=== PATIENT | male | born 1970 | race Caucasian/White ===

== ENCOUNTER 2017-01-18 23:24 | Inpatient (IN) ==
[2017-01-19] MEDS ORDERED: *HR* Morphine 2 MG/ML SYRINGE IVP PRN ×2 (03:01→13:43)
[2017-01-19] MEDS ORDERED: Ondansetron 4 MG/2 ML VIAL IVP PRN ×2 (03:02→18:19)
[2017-01-19] MEDS ORDERED: Ketorolac 30 MG/ML VIAL IVP PRN ×2 (03:20→18:19)
[2017-01-19] MEDS ORDERED: Naloxone 0.4 MG/ML INJ IVP PRN ×2 (03:20→18:19)
[2017-01-19] MEDS ORDERED: Acetaminophen 325 MG TABLET PO PRN ×2 (03:20→18:19)
[2017-01-19] MEDS ORDERED: D5% in 0.45% NACL 1,000 ML IVC SCH ×2 (03:30→13:29)
--- NOTE | 2017-01-19 03:47 | Internal Med History&Physical ---
Date of Encounter: 01/19/17 Time of Encounter: 03:44 Assessment and Plan (1) Obstructive jaundice Current visit: Yes Status: Acute Patient presented with sudden onset abdominal pain that woke him out of sleep. He reports a history of consuming excessive amounts of fatty foods. Exam reveals tenderness in the right upper quadrant with a positive Espitia sign. Laboratory data reveals obstructive jaundice with direct hyperbilirubinemia and transaminitis. CT scan reveals dilated extrahepatic ducts suggestive of distal common bile duct obstruction. Patient will be admitted to inpatient status. Expected to be in the hospital for at least 2 midnights. High risk due to possible choledocholithiasis which would require ERCP. At risk for cholecystitis and sepsis. Nothing by mouth for now. MRCP to evaluate for choledocholithiasis. Differential diagnosis also includes pancreatic cancer given his 30-fumh-unwj smoking history. Further management to depend on the results of the MRCP. If the MRCP reveals choledocholithiasis, will consult GI for ERCP. If the MRI is negative for choledocholithiasis but reveals gallstones, will consult surgery for cholecystectomy. Pain control. Intravenous fluids. (2) Choledocholithiasis Current visit: Yes Status: Suspected Suspected choledocholithiasis as the cause of his abdominal pain and obstructive jaundice. We will obtain MRCP. As mentioned above, further management to depend on the results of the MRCP. (3) Tobacco abuse Current visit: Yes Status: Chronic Counseled regarding cessation. Patient willing to quit. Internal Medicine - H&P: HPI Chief complaint: Abdominal pain Admitted From: Hospital to Hospital Transfer Plans for Post Hospital Care: Home History of present illness: Mr. Hoskins is a 46 year old male has been transferred from [place] emergency room to [facility] for further evaluation of his obstructive jaundice. Patient presented [facility] emergency room due to abdominal pain. Patient states that the pain started at around 3 AM on 01/18/2017 and woke him out of sleep. The pain was on the right side of his abdomen in the upper aspect which was stabbing in nature of 10/10 in intensity and was radiating to the back. No aggravating factors. It was relieved with pain medication he received in the emergency department. Associated with nausea and vomiting. He denies any diarrhea or constipation. He denies any fever or chills. He denies any shortness of breath, chest pain, cough, wheezing, palpitations or feeling lightheaded. He denies any recent weight changes or appetite changes. Denies any skin rashes or bruising. Past Med Surg Social Fam HX - Past Medical History Attestation: Yes The following information was validated with the patient. Source: patient Medical history: no medical history Psychiatric history: no psych history - Past Surgical History Surgical History: no surgical history - Social History Smoking Status: Current every day smoker Packs per day: 1 Smokeless Tobacco Status: No Alcohol use: rarely Drug use: marijuana Current living situation: Home - Independent Activity Level: Independent ambulation Recent Out of Country Travel Within the Last 8 Weeks: No Exposure or Possible Exposure to Illness During Travel: No - Family History Mother Hx Family Cardiac Disorders: Yes (htn) Internal Medicine - H&P: Meds No Known Home Drugs 01/18/17 [History] Allergies iodine Allergy (Verified 01/18/17 21:17) Vomiting shellfish Allergy (Uncoded 01/19/17 02:49) Vomiting All Systems PM: A 10-system review of systems was performed and is negative for pertinent findings except as documented above in the HPI. Review of systems: 10 systems have been reviewed and are negative except as mentioned in the history of present illness - Constitutional Vitals: Temp Pulse Resp BP Pulse Ox 98.2 F 69 16 145/82 95 01/19/17 00:29 01/19/17 00:29 01/19/17 00:29 01/19/17 00:29 01/19/17 00:29 Exam: Gen.: Lying in bed. Mild distress. Eyes: Pupils equal, round and reactive to light. Extraocular muscles intact. ENT: Moist mucous membranes. No oropharyngeal erythema or discharge. Chest: Clear to auscultation bilaterally. No adventitious sounds present. CVS: First and second heart sounds present. No murmurs, rubs or gallops. Abdomen: Soft, tenderness to palpation in the RUQ with positive Espitia's sign; no rebound tenderness, guarding or rigidity; nondistended. Bowel sounds present. No hepatosplenomegaly. Skin: No decubitus ulcers appreciated. LICENSING SPECIALIST: No focal neuro deficits present. Psychiatric: Alert, awake and oriented to time, place and person. Lymphatic system: No lymphadenopathy appreciated Internal Med - H&P Results - Labs Labs: Labs from [facility] reviewed - CBC normal CMP reveals T.Bili of 2.5 with 1.8 indirect bilirubin AST - 281, ALT - 285 and ALP of 136 Amylase and lipase are normal - Diagnostic Studies CT scan - abdomen Status: image reviewed by me (Mild dilation of extrahepatic bild ducts. No gallstones seen)
[2017-01-19 05:33] LABS: Basophils % 0.3 %; Eosinophils % 0.6 %; Hematocrit 40.4 % (37.5-50.1); Hemoglobin 13.7 g/dL (12.9-16.9); Immature Granulocytes % 0.3 % (0-4); Lymphocytes # 0.7 K/mcL (0.6-4.6); Lymphocytes % 19.1 %; Mean Corpuscular HGB Conc 33.9 g/dL (31.6-35.5); Mean Corpuscular Hemoglobin 30.4 pg (28.0-33.3); Mean Corpuscular Volume 89.6 fL (83.0-100.0); Mean Platelet Volume 11.8 fL (9.4-12.4); Monocytes # 0.5 K/mcL (0.0-1.3); Monocytes % 12.5 %; Neutrophils # 2.4 K/mcL (1.6-8.9); Platelet Count 144 K/mcL (140-400); Red Blood Count 4.51 M/mcL (4.19-5.50); Red Cell Distribution Width 13.1 % (11.5-14.5); Segmented Neutrophils % 67.2 %
[2017-01-19 05:50] LABS: Alanine Aminotransferase 376 Units/L (0-55); Albumin 3.4 g/dL (3.5-5.0); Albumin/Globulin Ratio 1.1 (1.1-2.2); Alkaline Phosphatase 141 Units/L (38-126); Aspartate Amino Transferase 342 Units/L (5-34); BUN/Creatinine Ratio 12 (6-26); Bilirubin,Total 2.7 mg/dL (0.2-1.2); Blood Urea Nitrogen 10 mg/dL (8-26); Carbon Dioxide 27 mEq/L (19-29); Chloride 107 mEq/L (98-109); Globulin 3.2 g/dL (2.4-3.5); Glucose 94 mg/dL (70-99); Osmolality,Calculated 291 (280-300); Potassium 3.7 mEq/L (3.5-4.5); Sodium 141 mEq/L (136-145); Total Protein 6.6 g/dL (6.0-8.3); eGFR For African Americans > 60 (> 60); eGFR For Non-African Americans > 60 (> 60)
[2017-01-19] MEDS: *HR* Heparin 5,000 UNIT/ML VIAL SQ SCH ×2 (08:15→16:35)
[2017-01-19] MEDS: *HR* Morphine 2 MG/ML SYRINGE IVP PRN ×2 (08:17→11:46)
[2017-01-19] MEDS ORDERED: Pantoprazole 40 MG VIAL IVP SCH (09:00)
--- NOTE | 2017-01-19 13:41 | General Surgery Consult Note ---
Date of Encounter: 01/19/17 Time of Encounter: 13:25 History of Present Illness Consult date: 01/19/17 Reason for consult: gallstones Requesting physician: Juliet Palm History of present illness: 46-year-old male transferred from [facility] after presenting there with acute right upper quadrant abdominal pain. This apparently awakened him at around 0300 hrs. on 01/18/17. Evaluation demonstrated the patient to be in pain with jaundice and abnormal LFTs. CT of the abdomen and pelvis was fairly unremarkable low prominent extrahepatic biliary ducts were evident. White count was normal, hemoglobin 15.8, hematocrit 46.1. Electrolytes, BUN, creatinine were within normal limits. Bilirubin was 2.5, AST 281, ALT 285, alkaline phosphatase 136. The findings were concerning for obstructive jaundice though no stones were evident on CT. Patient was transferred to [facility] for further evaluation and treatment. An MRCP was completed his morning showing no evidence of choledocholithiasis but a dilated gallbladder with stones was evident. This has prompted surgical consultation. Past medical history is unremarkable; the patient denies any history of diabetes , hypertension, cardiac, pulmonary, or renal disease Surgical history: None Allergies: Shellfish Medications: The patient is on no routine home meds Social history: Patient admits to 1 pack per day for at least 25 years; he admits to an occasional/rare alcoholic beverage. He smokes marijuana regularly. He denies any other illicit drug use. Physical examination reveals a thin age-appropriate male resting comfortably in his hospital bed. He is in no acute distress but indicates he was just medicated for pain. The patient appears to be his stated age, he did not appear to be clinically jaundiced despite the elevated bilirubin. Dentition was quite poor. The patient is afebrile, heart rate 56-65; respirations 1318; blood pressure 118/77. SPO2 on room air 96-98%. Lungs: Clear to auscultation; minimal right upper quadrant abdominal pain with deep inspiration Cardiac: Regular rate, no appreciable murmurs Abdomen: Soft, nondistended with tenderness in the right upper quadrant. No obvious hepatosplenomegaly was detected. The gallbladder was not palpable. Bowel sounds were hypoactive Extremities: No obvious clubbing cyanosis or edema. Repeat laboratories: White count 3.6; hemoglobin 13.7, hematocrit 40.4; platelet count 144,000. Diminished H&H is consistent with IV fluids administered through the night. Electrolytes, BUN, creatinine remain within normal limits. Bilirubin 2.7, AST 342, ALT 376, alkaline phosphatase 141. Urinalysis was markedly abnormal with a urine specific gravity greater than or equal to 1.030; trace ketones were present with large bilirubin. No significant white cells or red cells per high-powered field. Impression: 46-year-old male with acute cholecystitis, cholelithiasis with resultant jaundice and abnormal LFTs. Surgical intervention was discussed with the patient and is recommended JOSE. The patient is a reasonable candidate for laparoscopic cholecystectomy but understands an open cholecystectomy may become necessary. Risks of surgery include hemorrhage, infection, intra-abdominal abscess, bile leak, injury to adjacent ducts, vessels, organs, bowel. Postcholecystectomy diarrhea is also possible. The patient expressed understanding and surgical consent has been obtained. The patient has been NPO which will be maintained until surgery can be arranged later today. Past Med Surg Social Fam HX - Past Medical History Medical history: no medical history Psychiatric history: no psych history - Past Surgical History Surgical History: no surgical history - Social History Smoking Status: Current every day smoker Packs per day: 1 Smokeless Tobacco Status: No Alcohol use: rarely Drug use: marijuana - Family History Mother Hx Family Cardiac Disorders: Yes (htn) Medications and Allergies No Known Home Drugs 01/18/17 [History] Allergies iodine Allergy (Verified 01/19/17 09:10) Vomiting shellfish Allergy (Uncoded 01/19/17 02:49) Vomiting Review of Systems All systems PM: A 10-system review of systems was performed and is negative for pertinent findings except as documented above in the HPI. General Surgery Exam Initial Vital Signs Temp Pulse Resp BP Pulse Ox 98.2 F 69 16 145/82 95 01/19/17 00:29 01/19/17 00:29 01/19/17 00:29 01/19/17 00:29 01/19/17 00:29 Exam Initial Vital Signs Temp Pulse Resp BP Pulse Ox 98.2 F 69 16 145/82 95 01/19/17 00:29 01/19/17 00:29 01/19/17 00:29 01/19/17 00:29 01/19/17 00:29 Results - Labs 01/19/17 05:05 01/19/17 05:05 Abnormal lab results WBC 3.6 K/mcL (4.3-11.1) L 01/19/17 05:05 POC Glucose 98 (58-89) H 01/19/17 10:50 Total Bilirubin 2.7 mg/dL (0.2-1.2) H 01/19/17 05:05 AST 342 Units/L (5-34) H 01/19/17 05:05 ALT 376 Units/L (0-55) H 01/19/17 05:05 Alkaline Phosphatase 141 Units/L (38-126) H 01/19/17 05:05 Albumin 3.4 g/dL (3.5-5.0) L 01/19/17 05:05 Diabetes panel 01/19/17 Range/Units 05:05 Sodium 141 (136-145) mEq/L Potassium 3.7 (3.5-4.5) mEq/L Chloride 107 (98-109) mEq/L Carbon Dioxide 27 (19-29) mEq/L BUN 10 (8-26) mg/dL Creatinine 0.82 (0.72-1.25) mg/dL Glucose 94 (70-99) mg/dL Calcium 9.0 (8.6-10.8) mg/dL AST 342 H (5-34) Units/L ALT 376 H (0-55) Units/L Alkaline Phosphatase 141 H (38-126) Units/L Albumin 3.4 L (3.5-5.0) g/dL Calcium panel 01/19/17 Range/Units 05:05 Calcium 9.0 (8.6-10.8) mg/dL Albumin 3.4 L (3.5-5.0) g/dL Pituitary panel 01/19/17 Range/Units 05:05 Sodium 141 (136-145) mEq/L Potassium 3.7 (3.5-4.5) mEq/L Chloride 107 (98-109) mEq/L Carbon Dioxide 27 (19-29) mEq/L BUN 10 (8-26) mg/dL Creatinine 0.82 (0.72-1.25) mg/dL Glucose 94 (70-99) mg/dL Calcium 9.0 (8.6-10.8) mg/dL Adrenal panel 01/19/17 Range/Units 05:05 Sodium 141 (136-145) mEq/L Potassium 3.7 (3.5-4.5) mEq/L Chloride 107 (98-109) mEq/L Carbon Dioxide 27 (19-29) mEq/L BUN 10 (8-26) mg/dL Creatinine 0.82 (0.72-1.25) mg/dL Glucose 94 (70-99) mg/dL Calcium 9.0 (8.6-10.8) mg/dL Total Bilirubin 2.7 H (0.2-1.2) mg/dL AST 342 H (5-34) Units/L ALT 376 H (0-55) Units/L Alkaline Phosphatase 141 H (38-126) Units/L Albumin 3.4 L (3.5-5.0) g/dL All other labs normal. Consult Discharge Plan - Plan Referrals: NO,PCP [Primary Care Provider] -
--- NOTE | 2017-01-19 14:03 | Anesthesia Evaluation PreOp ---
Date of Encounter: 01/19/17 Time of Encounter: 14:00 - Past History Planned Operation: Lap. Tami Cardiac History: Denies any Significant Hx Pulmonary History: Smoker, Pack/yr (1 ppd) NURSE SPECIAL History: Denies Any Significant HX Other Medical History: Denies Any Significant HX Anesthesia History: No Prior Anesthetic Complications, Past Anesthesia (None) Alcohol Use: rarely Drug use: marijuana Medications and Allergies No Known Home Drugs 01/18/17 [History] Allergies iodine Allergy (Verified 01/19/17 09:10) Vomiting shellfish Allergy (Uncoded 01/19/17 02:49) Vomiting - Meds/Allergy Pre-op Review Medications Reviewed: Yes Allergies Reviewed: Yes Beta Blockers on Current Med List: No Anesthesia Results - Labs 01/19/17 05:05 01/19/17 05:05 Anesthesia Exam O2 Sat Height 1.83 m Weight 81.465 kg Weight 81.465 kg O2 Sat by Pulse Oximetry 98 O2 Sat by Pulse Oximetry 96 O2 Sat by Pulse Oximetry 97 O2 Sat by Pulse Oximetry 95 Vital Signs Temp Pulse Resp BP Pulse Ox 98.2 F 69 16 145/82 95 01/19/17 00:29 01/19/17 00:29 01/19/17 00:29 01/19/17 00:29 01/19/17 00:29 Vital Signs/O2 Sat, Most Current Temp Pulse Resp BP Pulse Ox 98 F 56 13 118/77 98 01/19/17 10:46 01/19/17 10:46 01/19/17 10:46 01/19/17 10:46 01/19/17 10:46 Height: 6' Weight: 179# NPO (# of Hours): > 8 hrs Pain Scale: 0 Pain Scale Used: Numeric (1 - 10) - HEENT Pupil (Motor): Pupils equal, EOMI Mallampati: II Teeth: Normal Oral Opening: Greater than 3 - NURSE SPECIAL LOC: Oriented NURSE SPECIAL Motor: Normal RUE, Normal LUE, Normal RLE, Normal LLE, Normal Face NURSE SPECIAL Sensory: Normal: RUE, LUE, RLE, LLE, Face - Cardiac Rhythm: Regular Murmur: None JVD: No Carotid Bruit: No - Pulmonary Breath Sounds: bilateral Clear Respiratory Effort: Symmetrical Anesthesia Assess/Plan Modified Blanca Scale for Level of Consciousness: Cooperative, oriented, and tranquil Anesthetic Plan: General Autologous Blood: Yes Monitoring Plan: Standard Monitors Recovery Plan: PACU
[2017-01-19] MEDS ORDERED: *HR* Propofol 200 MG/20 ML VIAL IVP ONE (15:49)
[2017-01-19] MEDS ORDERED: Dexamethasone 4 MG/ML VIAL ONE (15:50)
[2017-01-19] MEDS ORDERED: *HR* Midazolam HCl 2 MG/2 ML VIAL ONE (15:50)
[2017-01-19] MEDS ORDERED: Ondansetron 4 MG/2 ML VIAL ONE (15:50)
[2017-01-19] MEDS ORDERED: Lidocaine -MPF 2% 2 ML VIAL ONE (15:50)
[2017-01-19] MEDS ORDERED: *HR* Rocuronium Bromide 50 MG/5 ML VIAL ONE (15:50)
[2017-01-19] MEDS ORDERED: *HR* FentaNYL (PF) 100 MCG/2 ML VIAL ONE ×2 (15:50→16:42)
[2017-01-19] MEDS ORDERED: Lidocaine -MPF 4% 5 ML AMPUL ONE (15:55)
[2017-01-19] MEDS ORDERED: Bupivacaine/EPI 1:200k 0.25%PF 30 ML VIAL ONE (16:04)
[2017-01-19] MEDS ORDERED: Neostigmine Methylsulfate 3 MG/3 ML SYRINGE ONE (16:43)
[2017-01-19] MEDS ORDERED: *HR* HYDROmorphone (PF) 1 MG/ML SYRINGE IVP PRN (16:47)
[2017-01-19] MEDS ORDERED: *HR* Promethazine 25 MG/ML VIAL IVP PRN (16:47)
[2017-01-19] MEDS ORDERED: Ketorolac 30 MG/ML VIAL ONE (17:02)
[2017-01-19] MEDS ORDERED: EPHEDrine 50 MG/ML VIAL ONE (17:18)
[2017-01-19] MEDS ORDERED: Ringers Solution, Lactated 1,000 ML ONE (17:34)
--- NOTE | 2017-01-19 17:58 | Anesthesia Evaluation Post Op ---
Date of Encounter: 01/19/17 Time of Encounter: 17:55 - Vital Signs Vital Signs: vss - Lungs Lungs: Clear Ascult./Percussion - Airway Airway: Non-obstructed - Cardiovascular Baseline Rhythm - Mental Status Mental Status: Alert & Oriented, Answers Appropriately - Pain Pain Scale used: Ann (Faces) - Nausea Vomiting Nausea Vomiting: Not Present - Hydration Hydration: Ice chips - Discharge PostOp Status: Transfer Patient to floor
--- NOTE | 2017-01-19 18:06 | Operative Note ---
Date of procedure: 01/19/17 Pre-op diagnosis: Acute cholecystitis, cholelithiasis, obstructive jaundice Post-op diagnosis: same Procedure: Laparoscopic cholecystectomy, intraoperative cholangiogram Complications: None apparent Local Anesthetics: 0.25% Sensorcaine HCL with Epinephrine 1:200,000 SubQ (cc) ( 25 mL), 0.25% Sensorcaine HCL SubQ (cc) Surgeon: Lio Cantu Estimated blood loss (cc): 5 IV fluids (cc): 700 Specimen: gallbladder Condition: stable Disposition: PACU Procedure in Detail: The patient was brought to the operating room where he was placed supine upon the operating room table. The patient was appropriately identified as to person and procedure. The accuracy of this information was confirmed by the procedure team. This was accomplished, the patient was intubated and anesthetized under the supervision of Dr. Andre Castellano. The abdomen was prepped and draped in usual sterile fashion. Several milliliters of 0.25% bupivacaine with 1-200,000 units of epinephrine was infiltrated into the infraumbilical skin and subcutaneous tissue. A small transverse incision was made, dissection was carried to the fascia. The fascia was grasped, elevated, and infiltrated with additional bupivacaine with epinephrine. The fascia was then incised, an 11 mm Xcel port was established. The rigid laparoscope was placed within the obturator to visualize passage through the layers of the anterior abdominal wall. Once the abdominal cavity was accessed, the obturator was replaced by the rigid laparoscope. The abdomen was insufflated with gaseous carbon dioxide. There was no obvious visible injury from placement of the port. Under direct visualization 3 additional ports were placed along the right costal margin in the subxiphoid, midclavicular, and anterior axillary line. Each site was infiltrated with the 0.25% bupivacaine with 1-200,000 units epinephrine. The gallbladder was tensely distended. Using an endoscopic needle , the gallbladder was aspirated of approximately 120 mL dark green bile. This effectively decompressed the gallbladder and allowed it to be grasped and retracted. Acute inflammatory changes near the infundibulum of the gallbladder were encountered. Multiple adhesions were also noted in this area. These adhesions were dissected with the aid of the Ethicon Harmonic ronnie. Eventually the cystic duct was identified and skeletonized. The cystic duct was clipped and the infundibulum of the gallbladder. Via a separate percutaneous insertion site, a Taut cholangiogram catheter was introduced. The cystic duct was incised, the cholangiogram catheter was inserted. Using C-arm fluoroscopy, a cholangiogram was then completed. This demonstrated a tortuous cystic duct, dilated common bile duct and common hepatic ducts. There was a smooth tapering contour down to the sphincter but no flow of contrast into the duodenum was identified. The pancreatic duct also highlighted. As additional contrast was administered, the pancreatic duct filled more distally. I was unable to induce flow into the duodenum. Additional contrast was not administered due to the retrograde filling of the pancreatic duct. The proximal hepatobiliary tree appeared dilated but was otherwise unremarkable. No filling defects were identified. At the end of the procedure I reviewed these films with Dr. Souza, [facility]. Other than the lack of contrast flowing into the duodenum, no other abnormalities were described. The findings were consistent with either sphincter spasm or a distal obstructing stone. The previous MRCP was reviewed and compared to the intraoperative cholangiogram - the imaging was quite similar. The cholangiogram catheter was removed. The cystic duct was doubly clipped and divided. The cystic artery was clipped twice proximally and divided with the Ethicon Harmonic ronnie. The gallbladder was then dissected from the liver bed using the Ethicon harmonic ronnie. Edema was noted between the gallbladder and the liver bed. Once the gallbladder was from the liver bed, it was placed in an endoscopic pouch, and extracted through the infraumbilical opening. The gallbladder was retrieved and sent to pathology for analysis. A gallstone was palpable within the lumen. The liver bed was inspected for adequate hemostasis. Once this was ascertained, the pneumoperitoneum was evacuated and the instrumentation removed. The fascia of the infraumbilical opening was closed with interrupted [id number] of 0 Vicryl using S retractors. The skin edges of the port sites were approximated with subcuticular 4-0 Vicryl. The incisions were sealed with Dermabond dermal adhesive. The patient was taken to recovery in stable condition. Needle, sponge, and instrument counts were correct at the close of the case. Total volume of 0.25% bupivacaine with 1-200,000 units epinephrine used during this procedure, 25 mL.
[2017-01-19] MEDS ORDERED: Ringers Solution, Lactated 1,000 ML IVC SCH (18:19)
[2017-01-19] MEDS ORDERED: Ringers Solution, Lactated 1,000 ML IVC ONE (18:19)
[2017-01-19] MEDS: *HR* OxyCODONE/APAP 5/325 TABLET PO PRN (19:53)
[2017-01-19] MEDS: *HR* HYDROmorphone 2 MG/ML SYRINGE IVP PRN (22:34)
[2017-01-20] MEDS: *HR* OxyCODONE/APAP 5/325 TABLET PO PRN ×2 (01:53→08:19)
[2017-01-20 04:02] LABS: Hematocrit 42.2 % (37.5-50.1); Hemoglobin 13.7 g/dL (12.9-16.9); Immature Granulocytes % 0.2 % (0-4); Lymphocytes # 0.5 K/mcL (0.6-4.6); Lymphocytes % 12.2 %; Mean Corpuscular HGB Conc 32.5 g/dL (31.6-35.5); Mean Corpuscular Volume 89.2 fL (83.0-100.0); Mean Platelet Volume 12.2 fL (9.4-12.4); Monocytes # 0.3 K/mcL (0.0-1.3); Monocytes % 7.8 %; Neutrophils # 3.5 K/mcL (1.6-8.9); Platelet Count 147 K/mcL (140-400); Red Blood Count 4.73 M/mcL (4.19-5.50); Segmented Neutrophils % 79.8 %
[2017-01-20 04:12] LABS: Alanine Aminotransferase 320 Units/L (0-55); Albumin 3.2 g/dL (3.5-5.0); Alkaline Phosphatase 151 Units/L (38-126); Amylase 1021 Units/L (25-125); Aspartate Amino Transferase 151 Units/L (5-34); BUN/Creatinine Ratio 13 (6-26); Blood Urea Nitrogen 11 mg/dL (8-26); Calcium 8.8 mg/dL (8.6-10.8); Carbon Dioxide 26 mEq/L (19-29); Chloride 105 mEq/L (98-109); Globulin 3.3 g/dL (2.4-3.5); Glucose 123 mg/dL (70-99); Osmolality,Calculated 289 (280-300); Potassium 3.9 mEq/L (3.5-4.5); Sodium 139 mEq/L (136-145); Total Protein 6.5 g/dL (6.0-8.3); eGFR For African Americans > 60 (> 60); eGFR For Non-African Americans > 60 (> 60)
[2017-01-20 04:42] LABS: Lipase 1711 Units/L (8-78)
[2017-01-20] MEDS: *HR* HYDROmorphone 2 MG/ML SYRINGE IVP PRN (05:27)
[2017-01-20] MEDS ORDERED: Pantoprazole 40 MG VIAL IVP SCH (09:00)
--- NOTE | 2017-01-20 10:09 | General Surgery Progress Note ---
Date of Encounter: 01/20/17 Time of Encounter: 10:03 Subjective Patient reports: feels better, tolerating a regular diet Narrative: General Surgery - POD #1 Patient feeling much improved, acute right upper quadrant abdominal pain resolved. Afebrile, pulse 58, respirations 16, blood pressure 134/79 Lungs: Clear to auscultation, no longer has pain on inspiration Cardiac: Current rate is slow but regular Abdomen: Soft, minimal infraumbilical tenderness as expected after laparoscopic surgery. Port sites clean and dry. Active bowel sounds. Laboratories: White count 4.4, hemoglobin 13.7, hematocrit 42.2; platelet count 147,000. Electrolytes, BUN, creatinine within normal limits Total bilirubin has returned to normal 1.0; AST has improved to 151, ALT has improved to 320, alkaline phosphatase 151. Amylase and lipase are both elevated 1021/1711 respectively, consistent with postoperative pancreatitis. Likely due to the additional manipulation of the common bile duct related to the intraoperative cholangiogram. The intraoperative quadrant showed no flow of contrast into the duodenum, this may be related to sphincter spasm versus stone in the distal common duct. It appears less likely to be a stone in the distal common duct with Noted significant improvement in the total bilirubin and the LFTs. Recommendations: Low-fat diet - nothing by mouth if increasing abdominal pain, nausea or vomiting Recheck liver panel and amylase lipase in the morning Continue IV fluids at 50mL an hour Wean narcotic analgesics Objective Vital Signs - Last 8 Hours Temp Pulse Resp BP Pulse Ox 01/20/17 06:45 97.8 F 58 16 134/79 99 01/20/17 03:46 97.5 F L 70 16 143/82 95 Intake and Output 01/19/17 01/20/17 01/20/17 23:59 07:59 15:59 Intake Total 0 / 0 0 / 0 120 / 120 Output Total 905 / 905 1000 / 1000 Balance -905 / -905 -1000 / -1000 120 / 120 Intake: Oral 0 / 0 0 / 0 120 / 120 Output: Urine 900 / 900 1000 / 1000 Estimated Blood Loss 5 / 5 Other: Meal NPO Breakfast Percent of Meal Consumed 100% Weight 81.556 kg Patient Weight 01/20/17 23:59 Weight 81.556 kg - Labs 01/20/17 03:23 01/20/17 03:23 Diabetes panel 01/20/17 Range/Units 03:23 Sodium 139 (136-145) mEq/L Potassium 3.9 (3.5-4.5) mEq/L Chloride 105 (98-109) mEq/L Carbon Dioxide 26 (19-29) mEq/L BUN 11 (8-26) mg/dL Creatinine 0.86 (0.72-1.25) mg/dL Glucose 123 H (70-99) mg/dL Calcium 8.8 (8.6-10.8) mg/dL AST 151 H (5-34) Units/L ALT 320 H (0-55) Units/L Alkaline Phosphatase 151 H (38-126) Units/L Albumin 3.2 L (3.5-5.0) g/dL Calcium panel 01/20/17 Range/Units 03:23 Calcium 8.8 (8.6-10.8) mg/dL Albumin 3.2 L (3.5-5.0) g/dL Pituitary panel 01/20/17 Range/Units 03:23 Sodium 139 (136-145) mEq/L Potassium 3.9 (3.5-4.5) mEq/L Chloride 105 (98-109) mEq/L Carbon Dioxide 26 (19-29) mEq/L BUN 11 (8-26) mg/dL Creatinine 0.86 (0.72-1.25) mg/dL Glucose 123 H (70-99) mg/dL Calcium 8.8 (8.6-10.8) mg/dL Adrenal panel 01/20/17 Range/Units 03:23 Sodium 139 (136-145) mEq/L Potassium 3.9 (3.5-4.5) mEq/L Chloride 105 (98-109) mEq/L Carbon Dioxide 26 (19-29) mEq/L BUN 11 (8-26) mg/dL Creatinine 0.86 (0.72-1.25) mg/dL Glucose 123 H (70-99) mg/dL Calcium 8.8 (8.6-10.8) mg/dL Total Bilirubin 1.0 D (0.2-1.2) mg/dL AST 151 H (5-34) Units/L ALT 320 H (0-55) Units/L Alkaline Phosphatase 151 H (38-126) Units/L Albumin 3.2 L (3.5-5.0) g/dL Consult Discharge Plan - Plan Referrals: Sinning,Lio M, MD [Non-Partnered Physician] - NO,PCP [Primary Care Provider] -
[2017-01-20 10:41] VITALS: BP 147/78
[2017-01-20] MEDS ORDERED: *HR* OxyCODONE/APAP 5/325 TABLET PO PRN (11:42)
--- NOTE | 2017-01-20 12:59 | Discharge Summary ---
Date of Encounter: 01/20/17 Time of Encounter: 12:57 - Discharge Medications Prescriptions: OxyCODONE/APAP 5/325 [Percocet 5/325 MG] 1 each PO Q6HR PRN #20 tablet PRN Reason: pain not relieved by Tylenol Home Medications: OxyCODONE/APAP 5/325 [Percocet 5/325 MG] 1 each PO Q6HR PRN #20 tablet 01/20/17 [Rx] Allergies/Adverse Reactions: Allergies iodine Allergy (Verified 01/19/17 09:10) Vomiting shellfish Allergy (Uncoded 01/19/17 02:49) Vomiting Procedures/tests Complete & Pending: Procedures Performed prior 72 hours Category Date Time Status MR abdomen wo con [MR] Routine MRI 01/19/17 03:22 Completed Date of admission: 01/19/17 06:09 Primary care physician: PCP DOM Consults: 01/19/17 12:51 Consult to Surgery [CONS] Routine Consulting Provider: Surgery Zachery Surg - Alondra Reason for Consult: please evaluate for cholelithiasis with positive bermudez' s for possible cholecystectomy.thank you Call Completed: Yes Discharging clinician: Juliet Palm Anticipated date of discharge: 01/20/17 - Patient Status Disposition: Left Against Medical Advice Condition: Fair Functional capacity at discharge: independent ambulation Overall status at discharge: patient is back to baseline - Discharge Instructions Follow Up With: DOM,PCP [Primary Care Provider] - Lio Cantu MD [Non-Partnered Physician] - - Diet and Activity Diet: advance to your usual diet Interval History: patient admitted for RUQ abdominal pain,MRI showed cholelithiasis. HE underwent lap cholecystectomy with Dr. Cantu 01/19 and is signing out AMA today. Hospital course: Mr. Hoskins is a 46 year old male - Time Spent with Patient Total time spent providing and/or coordinating discharge services: - Constitutional Vitals: Temp Pulse Resp BP Pulse Ox 97.3 F L 64 16 147/78 96 01/20/17 10:37 01/20/17 10:37 01/20/17 10:37 01/20/17 10:37 01/20/17 10:37 Exam: signed out AMA
[2017-01-20] MEDS ORDERED: *HR* Heparin 5,000 UNIT/ML VIAL SQ SCH (18:00)
== END 2017-01-20 13:20 | disposition left against medical advice (07) | DRG 263 ==
LOC: 3ANU
PROVIDERS: ADMIT Internal Medicine Endocrinology, Diabetes & Metabolism; ATTEND Internal Medicine Endocrinology, Diabetes & Metabolism